=== PATIENT | female | born 2000 | race Caucasian/White ===

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

== ENCOUNTER 2021-01-16 23:12 | Emergency (ER) | payer BC, MEDICAID ==
[~2021-01-16] VITALS: Ht 149.9 cm; Wt 68.0 kg
[2021-01-16 23:23] VITALS: BP 122/73
--- NOTE | 2021-01-16 23:23 | NUR ---
TO BED AMBULATORY
--- NOTE | 2021-01-16 23:52 | NUR ---
Dr. Ramirez examining patient.
[2021-01-16 23:57] LABS: APPEARANCE,URINE CLOUDY (CLEAR); BILIRUBIN,URINE NEGATIVE (NEGATIVE); BLOOD, URINE TRACE-L (NEGATIVE); COLOR,URINE YELLOW (YELLOW); LEUKOCYTE ESTERASE ,URINE TRACE (NEGATIVE); NITRITE, URINE NEGATIVE (NEGATIVE); UGLUCOSE NEGATIVE (NEGATIVE)
[2021-01-17 00:06] LABS: WBC,URINE 0-5 /HPF (0-5)
[2021-01-17] MEDS ORDERED: ONDANSETRON 4 MG ODT PO ONE (00:20)
[2021-01-17] MEDS ORDERED: NACL 0.9% 1,000 ML IV ONE (00:20)
[2021-01-17] MEDS ORDERED: ACETAMINOPHEN EXTRA STRENGTH 500 MG TAB PO ONE (00:20)
[2021-01-17] MEDS ORDERED: cephALEXin 500 MG CAP PO ONE (00:20)
[2021-01-17 00:42] LABS: BASOPHILS % (AUTO) 0.5 % (0.0-2.0); EOSINOPHILS % (AUTO) 0.4 % (0.0-4.0); HEMATOCRIT 36.7 % (36-48); HEMOGLOBIN 12.6 g/dL (12.0-16.0); MEAN CORPUSCULAR HEMOGLOBIN 31 pg (27-31); MEAN CORPUSCULAR HGB CONC 34 g/dL (33-37); MEAN CORPUSCULAR VOLUME 90.4 fL (80-94); MONOCYTES # (AUTO) 0.6 K/uL (0.8-1.0); MONOCYTES % (AUTO) 7.2 % (1.7-9.3); NEUTROPHILS # (AUTO) 5.4 K/uL (1.8-7.7); NEUTROPHILS % (AUTO) 66.9 % (42.2-75.2); PLATELET COUNT (AUTO) 327 K/uL (140-450); RED BLOOD CELL COUNT(AUTO) 4.06 MIL/uL (4.20-5.40); RED CELL DISTRIBUTION WIDTH 15.2 % (11.6-13.7); WHITE BLOOD COUNT (AUTO) 8.1 K/uL (4.5-11.0)
[2021-01-17 00:55] LABS: ANION GAP 15.9 (8-16); CARBON DIOXIDE 23.4 mmol/L (21-32); CREATININE 0.5 mg/dL (0.6-1.3); POTASSIUM 3.3 mmol/L (3.5-5.1)
[2021-01-17 01:04] LABS: ALBUMIN 3.5 g/dL (3.4-5.0); TOTAL BILIRUBIN 0.2 mg/dL (0.0-1.0)
--- NOTE | 2021-01-17 01:20 | NUR ---
US at bedside.
--- NOTE | 2021-01-17 01:42 | NUR ---
NAD at this time.
[2021-01-17] MEDS ORDERED: CEPH-588 PO (03:33)
[2021-01-17 03:36] VITALS: BP 94/50
--- NOTE | 2021-01-17 04:07 | NUR ---
pt d/c with VSS. d/c education given. opportunity to ask questions given and answered. rx of keflex given.
== END 2021-01-17 04:07 | disposition home or self-care (01) ==
LOC: MED 23:12
DX: O23.41 Unspecified infection of urinary tract in pregnancy, first trimester (principal); O21.8 Other vomiting complicating pregnancy; O26.891 Other specified pregnancy related conditions, first trimester; E87.6 Hypokalemia; J45.909 Unspecified asthma, uncomplicated; Z3A.09 9 weeks gestation of pregnancy; Z79.899 Other long term (current) drug therapy
CPT/HCPCS: 36415; 76770; 76801; 80053; 81001; 81025; 84702; 85025; 87086; 96360; 99285; J7030; Q0162

== ENCOUNTER 2021-05-09 01:00 | Observation (INO) | payer MEDICAID ==
[~2021-05-09] VITALS: Ht 149.9 cm; Wt 72.1 kg
[~2021-05-09 01:00] MED LIST: CEPH-588 PO
[2021-05-09 02:27] LABS: APPEARANCE,URINE SL CLOUDY (CLEAR); BILIRUBIN,URINE NEGATIVE (NEGATIVE); BLOOD, URINE NEGATIVE (NEGATIVE); COLOR,URINE YELLOW (YELLOW); LEUKOCYTE ESTERASE ,URINE NEGATIVE (NEGATIVE); NITRITE, URINE NEGATIVE (NEGATIVE); UGLUCOSE NEGATIVE (NEGATIVE)
[2021-05-09 02:36] VITALS: BP 124/60
[2021-05-09] MEDS ORDERED: PRETAB PO (02:41)
== END 2021-05-09 03:00 | disposition home or self-care (01) ==
LOC: MLD 01:00
PROVIDERS: ADMIT Obstetrics & Gynecology; ATTEND Obstetrics & Gynecology
DX: O23.42 Unspecified infection of urinary tract in pregnancy, second trimester (principal); Z3A.25 25 weeks gestation of pregnancy
CPT/HCPCS: 81003; G0378

== ENCOUNTER 2022-07-01 10:32 | Emergency (ER) | payer MEDICAID ==
[~2022-07-01] VITALS: Ht 10.2 cm; Wt 5.0 kg
[~2022-07-01 10:32] MED LIST changes: +PRETAB PO
[2022-07-01 10:34] VITALS: BP 112/61
[2022-07-01 11:38] LABS: BASOPHILS % (AUTO) 0.3 % (0.0-2.0); EOSINOPHILS % (AUTO) 0.6 % (0.0-4.0); HEMATOCRIT 33.9 % (36-48); HEMOGLOBIN 10.9 g/dL (12.0-16.0); LYMPHOCYTES # (AUTO) 1.6 K/uL (2.5-16.5); LYMPHOCYTES % (AUTO) 21.6 % (20.5-51.1); MEAN CORPUSCULAR HEMOGLOBIN 26 pg (27-31); MEAN CORPUSCULAR HGB CONC 32 g/dL (33-37); MEAN CORPUSCULAR VOLUME 81.4 fL (80-94); MONOCYTES # (AUTO) 0.5 K/uL (0.8-1.0); MONOCYTES % (AUTO) 7.3 % (1.7-9.3); NEUTROPHILS # (AUTO) 5.1 K/uL (1.8-7.7); NEUTROPHILS % (AUTO) 70.2 % (42.2-75.2); PLATELET COUNT (AUTO) 426 K/uL (140-450); RED BLOOD CELL COUNT(AUTO) 4.16 MIL/uL (4.20-5.40); RED CELL DISTRIBUTION WIDTH 17.1 % (11.6-13.7); WHITE BLOOD COUNT (AUTO) 7.2 K/uL (4.5-11.0)
[2022-07-01 11:53] LABS: ALBUMIN 3.8 g/dL (3.4-5.0); ANION GAP 11.6 (8-16); CARBON DIOXIDE 27.1 mmol/L (21-32); CREATININE 0.6 mg/dL (0.6-1.3); POTASSIUM 3.7 mmol/L (3.5-5.1); TOTAL BILIRUBIN 0.3 mg/dL (0.0-1.0)
[2022-07-01 11:54] LABS: APPEARANCE,URINE CLEAR (CLEAR); BILIRUBIN,URINE NEGATIVE (NEGATIVE); BLOOD, URINE TRACE-I (NEGATIVE); COLOR,URINE YELLOW (YELLOW); LEUKOCYTE ESTERASE ,URINE NEGATIVE (NEGATIVE); NITRITE, URINE NEGATIVE (NEGATIVE); UGLUCOSE NEGATIVE (NEGATIVE)
[2022-07-01 12:09] LABS: WBC,URINE 0-5 /HPF (0-5)
[2022-07-01 12:10] LABS: OTHER CASTS, URINE None Seen /LPF (None Seen)
--- NOTE | 2022-07-01 14:36 | NUR ---
Patient does not wish to proceed with medical care recommended by CHARLIE. Patient given information related to possible complications, up to and including , which could occur as a result of leaving hospital at this time. Patient verbalizes understanding of risks involved leaving against medical advice. Patient has signed AMA form.
== END 2022-07-01 14:30 | disposition left against medical advice (07) ==
LOC: MED 10:32
DX: O46.91 Antepartum hemorrhage, unspecified, first trimester (principal); O26.891 Other specified pregnancy related conditions, first trimester; O99.511 Diseases of the respiratory system complicating pregnancy, first trimester; R07.9 Chest pain, unspecified; Z3A.01 Less than 8 weeks gestation of pregnancy
CPT/HCPCS: 36415; 76856; 80053; 81001; 81025; 85025; 93005; 99285; Q0092